=== PATIENT | female | born 1950 | race Caucasian/White ===

== ENCOUNTER 2018-08-22 12:20 | Emergency (ER) | payer OTHER ==
[2018-08-22 14:02] LABS: ADD MAN DIFF? NO
[2018-08-22 14:03] LABS: BASOPHILS % 0.3 % (0.0-2.0); EOSINOPHILS # 0.1 10^3/ul (0.0-0.5); EOSINOPHILS % 0.6 % (0.0-7.0); HEMATOCRIT 38.4 % (37.0-47.0); HEMOGLOBIN 12.6 g/dl (12.0-16.0); LYMPHOCYTES # 1.4 10^3/ul (0.8-2.9); LYMPHOCYTES % 15.5 % (15.0-51.0); MEAN CORPUSCULAR HEMOGLOBIN 27.8 pg (29.0-33.0); MEAN CORPUSCULAR HGB CONC 32.8 g/dl (32.0-37.0); MEAN CORPUSCULAR VOLUME 84.6 fl (82.0-101.0); MEAN PLATELET VOLUME 11.9 fl (7.4-10.4); MONOCYTE # 0.6 10^3/ul (0.3-0.9); NEUTROPHIL # 7.2 10^3/ul (1.6-7.5); NEUTROPHILS % 77.4 % (39.0-77.0); PLATELET COUNT 253 10^3/UL (140-415); RED BLOOD COUNT 4.54 10^6/ul (4.20-5.40); RED CELL DISTRIBUTION WIDTH 15.2 % (11.5-14.5)
[2018-08-22 14:03] LABS: WHITE BLOOD COUNT 9.3 10^3/ul (4.8-10.8)
[2018-08-22 14:20] LABS: ALANINE AMINOTRANSFERASE 37 IU/L (13-69); ALBUMIN 3.8 g/dl (3.3-4.9); ALBUMIN/GLOBULIN RATIO 1.11; ALKALINE PHOSPHATASE 60 IU/L (42-121); ANION GAP 14 (8-16); ASPARTATE AMINO TRANSFERASE 28 IU/L (15-46); BILIRUBIN,INDIRECT 0.3 mg/dl (0-1.1); BILIRUBIN,TOTAL 0.3 mg/dl (0.2-1.3); BLOOD UREA NITROGEN 9 mg/dl (7-20); CALCIUM 9.6 mg/dl (8.4-10.2); CARBON DIOXIDE 28 mmol/L (21-31); CHLORIDE 103 mmol/L (97-110); CREATININE 0.66 mg/dl (0.44-1.00); GLUCOSE 137 mg/dl (70-220); LIPASE 27 U/L (23-300); POTASSIUM 3.2 mmol/L (3.5-5.1); SODIUM 142 mmol/L (135-144); TOTAL PROTEIN 7.2 g/dl (6.1-8.1)
[2018-08-22 14:31] LABS: TROPONIN-I < 0.012 ng/ml (0.000-0.120)
[2018-08-22 14:34] LABS: INR 0.94; PROTIME 12.7 Sec (11.9-14.9)
[2018-08-22] MEDS: SOD CHLORIDE 0.9% 1,000 ML IV (14:41)
[2018-08-22] MEDS: HYDROmorphONE 0.5 MG/0.5 ML SYG IV (14:41)
[2018-08-22] MEDS: LEVETIRACETAM 500 MG (PMX) 100 ML IVPB (15:03)
[2018-08-22] MEDS: DEXAMETHASONE 10 MG/ML 1 ML INJ IV (17:40)
[2018-08-22] MEDS: DIPHENHYDRAMINE 25 MG CAP PO (18:04)
== END 2018-08-22 23:00 | disposition short-term general hospital (02) ==
LOC: E/R 12:20
DX: G93.40 Encephalopathy, unspecified (principal); C71.2 Malignant neoplasm of temporal lobe; G40.A09 Absence epileptic syndrome, not intractable, without status epilepticus; R40.2122 Coma scale, eyes open, to pain, at arrival to emergency department; R40.2242 Coma scale, best verbal response, confused conversation, at arrival to emergency department; R40.2352 Coma scale, best motor response, localizes pain, at arrival to emergency department; I10 Essential (primary) hypertension; R10.9 Unspecified abdominal pain
CPT/HCPCS: 36415; 70450; 71045; 80053; 83690; 84484; 85025; 85610; 93005; 96365; 96366; 96375; 99291-25